=== PATIENT | female | born 1960 | race Caucasian/White ===

== ENCOUNTER → 2017-10-31 | Day surgery (SDC) | payer OTHER, MEDICARE ==
[~2017-10-31] VITALS: Ht 162.6 cm; Wt 81.6 kg
[~2017-10-31] MED LIST: FLUOXETINE HYDR20 MG PO; KETOROLAC TROME10 M1 PO; MULTIVITAMIN1 TAB PO; PROTONIX 40MG T40 MG PO; VICODIN5-300 PO; VITAB121000 PO; VITAMIN B6100 MG PO; [UNRECOGNIZED DRUG - OTHER] PO
--- NOTE | 2017-11-01 07:11 | Operative Report ---
Operative/Inv Procedure Report Surgery Date: 10/31/17 Name of Procedure: cystscopy: mid-urethral sling with mesh insertion: botox 300 units bladder injection Pre-Operative Diagnosis: severe mixed incontinence: refractory to anti-cholinergics even at higher than recommended doses. Post-Operative Diagnosis: same Estimated Blood Loss: less than 50ml Surgeon/Aircraft Ordnance Systems Mechanic: Jelnai Mayo MD Anesthesia: laryngeal mask airway, block Drains: 16fr hernandez-dc'd in rr for VT Complications: none Operative/Procedure Note Note: The patient was taken to the operating room and placed on the OR table in supine position. Timeout was performed in order to confirm the correct patient, procedure, and other pertienent operative information. After adequate anesthesia and antibiotics, the patient was then placed lithotomy stirrups, draped and prepped in the usual surgical fashion. Dr. Riggins proceeded with her surgery first. Once Dr. Riggins was finished with her surgery, the 22 gabonese cystoscope with the 30 degree angle lens was inserted into the bladder without difficulty. Uretral mucosa was noted to be coapting well. The bladder appears normal without tumor/stone. Bilateral clear efflux was also noted. The cystoscope was removed after draining the bladder. Subsequently, the Botox Injection Resectoscope with 30 angle lens was inserted without difficulty. Under direct visualization, the 18-gauge cystoscopic needle was extended. Using a spiral injection patern, avoiding the trigone and area around the ureteral orifices, a total of 300 units of Botox, in small 10unit aliquots was injected into the bladder muscle/detrusor (including the dome, posterior, right and left campbell of the bladder) forming a submucosal blister with each injection of botox. The bladder was then drained and the Botox cystoscope was removed without difficulty. A weighted speculum was placed into the vagina without difficulty. A 14 Maldivian Hernandez catheter was inserted without difficulty, draining clear urine. Once the bladder was completely drained, the hernandez was clamped. [place]-dissection, using 2% lidocaine with epinephrine, was performed along the mid line of the urethra, from the urethral orifice to the bladder neck. 15 blade knife was used to make an vertical incision along the length of the urethra. Using blunt and sharp dissection, anterior vaginal flaps were were dissected in order to expose the periurethral fascia. The medial aspect of the initial bone was palpable from both sides of the urethral dissection. Stab incisions on the lateral portion of the labia, approximately 2 cm below the insertion point of the gracilis was performed using 15 blade knife. The entire area was infiltrated with 2% lidocaine with epinephrine. The finder needle was used in order to identify the inner surface of the initial spine to find the obturator space. Using the right -handed needle passer, the puncture wound on the left side of the patient was entered, guiding the passer, with index finger in the vaginal sarina-urethral space, through the inner surface of the obturator, and into the sarina-vesicle space extending out through the left side of the anterior vaginal dissection. The mesh was then attached to the needle passer, and the needle passer was then retracted along the same line as was entered, pulling the mesh in place along with it. The oposite side of the mesh was passed into the sarina-vesical space, and out through the right stab incision using mirror image technique. The mesh was flattened, and securely placed across the mid-urethral position. Copious amount of vancomycin irrigation solution was used to irrigate the vaginal incision, as well as the lateral incisions. The Hernandez catheter was removed, followed by insertion of a 22 Maldivian cystoscope sheath with a 30 angle lens. Upon entering the bladder the bladder was noted to be free of tumor free of injury free of stone area both ureteral orifices were in their orthotopic position with clear reflux bilaterally. The cystoscope was then drained and the 14 Maldivian Hernandez catheter was then reinserted. The excess mesh material extruding from the lateral incisions was cut down below the skin, both lateral incisions were closed using Fair. The anterior vaginal incision was closed using 2-0 undyed Vicryl stitch in a alternating simple/locking stitch. Bacitracin coated vaginal packing was then placed into the vaginal vault. The Hernandez catheter was placed into a leg bag, which will be discontinued in the recovery room once the patient is awake along with the vaginal packing. All sponge needle and instrument counts were correct at the end of the case. The patient tolerated the procedure well, and was then taken to recovery room in satisfactory condition. She was discharged home with pain medication and antibiotics, and to follow up in 2 weeks' time. Discharge Disposition: PACU CC: Jelani Mayo MD
== END ==
LOC: STS 01:57
DX: N32.81 Overactive bladder (principal); N39.41 Urge incontinence; N39.46 Mixed incontinence; R10.2 Pelvic and perineal pain; K66.0 Peritoneal adhesions (postprocedural) (postinfection); K21.9 Gastro-esophageal reflux disease without esophagitis; Z87.891 Personal history of nicotine dependence
CPT/HCPCS: 81025; C1781; J0585; J2250; J2405; J3370

== ENCOUNTER 2017-11-15 12:02 | Emergency (ER) | payer OTHER ==
[~2017-11-15] VITALS: Ht 162.6 cm; Wt 81.6 kg
[2017-11-15] MEDS ORDERED: NYSTATIN100000 UNI PO (12:53)
[2017-11-15] MEDS ORDERED: ESCITALOPRAM OX10 MG PO (12:53)
[2017-11-15] MEDS ORDERED: LIDOCAINE HCL V15 ML PO (12:53)
[2017-11-15] MEDS ORDERED: NEXIUM40 M1 PO (12:53)
[2017-11-15] MEDS ORDERED: TRIAMCINOLONE AC5 GM TOP (12:53)
[2017-11-15] MEDS ORDERED: CRESTOR5 M1 PO (12:54)
--- NOTE | 2017-11-15 15:06 | CT SCAN REPORT ---
EXAMINATION: CT ABDOMEN AND PELVIS WITHOUT CONTRAST CLINICAL INFORMATION: Left flank pain. COMPARISON: 07/10/2014 TECHNIQUE: Multidetector volumetric imaging was performed from the superior aspect of the liver through the pubic symphysis. Sagittal and coronal reformatted images were obtained on the technologist's workstation. DLP: 637 mGy-cm FINDINGS: LUNG BASES: Unremarkable. No basilar consolidation or pleural effusion. LIVER, GALLBLADDER, AND BILIARY TREE: The liver has normal size, shape, and attenuation. No focal hepatic lesion. The gallbladder is normal; no radiopaque gallstones, wall thickening or pericholecystic inflammatory changes. No intrahepatic or extrahepatic bile duct dilatation. PANCREAS: Unremarkable. SPLEEN: Unremarkable. ADRENAL GLANDS: Unremarkable. KIDNEYS AND URETERS: The kidneys have normal size, shape, and attenuation. No hydroureteronephrosis, urolithiasis or perinephric stranding. BLADDER: Unremarkable. BOWEL AND PERITONEUM: Stomach is unremarkable. The small and large bowel are normal in caliber. The appendix is normal. No evidence of acute inflammation or obstruction along the gastrointestinal tract. No ascites or pneumoperitoneum. ABDOMINAL WALL: Small fat-containing umbilical hernia, 1.3 cm transverse dimension, unchanged compared to 07/10/2014. LYMPH NODES: No pathologic sized lymph nodes in the abdomen or pelvis. No inguinal lymphadenopathy. VASCULAR: Atherosclerosis of abdominal aorta without aneurysm. No retroperitoneal hematoma. PELVIC: The uterus and adnexa are unremarkable. No pelvic mass or free fluid. MUSCULOSKELETAL: The lumbar vertebra have normal height and alignment. Surgical changes from L3 laminectomy and L3-L4 spinal fusion. The posterior fusion rods and transpedicular screws are intact. The intervertebral fusion device is well-positioned within the disc space. There are solid posterolateral columns of bone graft at L3-L4. The grade 2 avascular necrosis of the right femoral head is new compared to 07/10/2014. IMPRESSION: - No evidence of urolithiasis or urinary tract obstruction. - Small, fat-containing umbilical hernia is unchanged compared to 07/10/2014. 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
--- NOTE | 2017-11-15 15:39 | ED NECK/BACK PAIN COMPLAINT ---
History of Present Illness General Chief Complaint: Abdominal Pain/Flank Pain Stated Complaint: L FLANK PAIN, HX OF KIDNEY STONES Source: patient Exam Limitations: no limitations Vital Signs & Intake/Output Vital Signs & Intake/Output Vital Signs Date Time Temp Pulse Resp B/P B/P Pulse O2 O2 Flow FiO2 Mean Ox Delivery Rate 11/15 1507 58 18 121/82 99 Room Air 11/15 1208 97.0 53 18 117/76 96 Room Air Allergies Coded Allergies: ciprofloxacin (From CIPRO) (THRUSH 11/15/17) Reconcile Medications Escitalopram Oxalate 10 MG TABLET 1 TAB PO DAILY MENTAL HEALTH (Reported) Esomeprazole (Nexium) 40 MG CAPSULE.DR 1 CAP PO DAILY GI (Reported) Lidocaine HCl (Lidocaine HCl Viscous) 2 % SOLUTION 5 ML PO TID THRUSH ( Reported) Nystatin 100,000 UNIT/ML ORAL.SUSP 5 ML PO 4 TIMES/DAY THRUSH (Reported) Rosuvastatin Calcium (Crestor) 5 MG TABLET 1 TAB PO DAILY CHOLESTEROL ( Reported) Triamcinolone Acetonide 0.1 % PASTE..G. 1 JAMIE TOP DAILY SKIN (Reported) Triage Note: PT STATES SHE IS HAVING LEFT FLANK PAIN THAT BEGAN YESTERDAY. PT STATES SHE HAS A KIDNEY STONE THAT IS MOVING. Triage Nurses Notes Reviewed? yes HPI: 56-year-old white female with previous history of back problems for which she required pain management now presents with left flank pain since last night which she describes as severe and possibly related to a previous kidney stone. Patient admits to mild nausea but denies any history of trauma, rash, abdominal pain, bowel or bladder incontinence, or radiation of her pain. Past History Travel History Traveled to [place] past 21 day No Medical History Any Pertinent Medical History? see below for history Neurological: NONE EENT: NONE Cardiovascular: hyperlipidemia Respiratory: NONE Gastrointestinal: GERD Hepatic: NONE Renal: KIDNEY STONES Musculoskeletal: chronic back pain Psychiatric: depression Endocrine: NONE Blood Disorders: NONE Cancer(s): PRE CA POLYPS DRYWALL CONTRACTOR/Reproductive: NONE Surgical History Surgical History: non-contributory Psychosocial History What is your primary language Japanese Tobacco Use: Quit >30 days ago ETOH Use: occasional use Illicit Drug Use: denies illicit drug use Family History Hx Contributory? No Review of Systems Review of Systems Constitutional: Denies: no symptoms, see HPI, chills, diaphoresis, fever, malaise, weakness, unexplained weight loss. Musculoskeletal: Reports: back pain. Skin: Reports: no symptoms. Neurological/Psychological: Reports: no symptoms. All Other Systems: Reviewed and Negative Physical Exam Physical Exam General Appearance: well developed/nourished, alert, awake Head: atraumatic, normal appearance Eyes: Bilateral: PERRL, EOMI, normal inspection. Ears, Nose, Throat, Mouth: hearing grossly normal Neck: normal inspection, supple Respiratory: normal breath sounds, chest non-tender, no respiratory distress, quiet respiration, lungs clear Cardiovascular: regular rate/rhythm Gastrointestinal: normal bowel sounds, soft, non-tender, no organomegaly Back: CVA tenderness (L), decreased range of motion, muscle spasm Extremities: non-tender, normal range of motion Neurologic/Psych: no motor/sensory deficits, awake, alert, oriented x 3, normal gait Core Measures CVA/TIA Diagnosis: No Progress Differential Diagnosis: aortic dissection, herniated disc, myofascial strain, sciatica, ureterolithiasis Plan of Care: Orders Procedure Date/time Status URINALYSIS 11/15 1209 Complete Laboratory Tests 11/15/17 1218: Urine Color YEL, Urine Clarity CLEAR, Urine pH 6.5, Ur Specific [place] 1.015, Urine Protein NEG, Urine Ketones NEG, Urine Nitrite NEG, Urine Bilirubin NEG, Urine Urobilinogen 0.2, Ur Leukocyte Esterase TRACE H, Ur Microscopic SEDIMENT EXAMINED, Urine RBC RARE, Urine WBC RARE, Ur Epithelial Cells FEW, Urine Bacteria RARE H, Urine Hemoglobin TRACE-INTACT, Urine Glucose NEG Comments: Patient was given Toradol 50 mg IV without relief of symptoms. This was followed by morphine 4 mg IV however the patient continues to report pain. Long conversation was had with the patient regarding her previous history of back pain requiring pain management and my concern regarding possible opioid tolerance. Patient will be given a prescription for Celebrex and recommended to follow-up with Orth [facility] plastic production machine setter for outpatient physical therapy and pain management. Departure Departure Time of Disposition: 1535 Disposition: HOME OR SELF CARE Condition: Stable Clinical Impression Primary Impression: Back pain Qualifiers: Back pain location: low back pain Chronicity: acute Back pain laterality: left Sciatica presence: without sciatica Qualified Code: M54.5 - Low back pain Referrals: Cee DENT,Lexi Márquez (PCP/Family) Additional Instructions: Please follow-up with your PCP for ongoing pain management as well as with the orthopedist on-call for possible physical therapy and pain management. Departure Forms: Customer Survey General Discharge Information
[2017-11-15] MEDS ORDERED: CELEBREX200 M1 PO (15:42)
[2017-11-15 16:11] VITALS: BP 133/75
== END 2017-11-15 16:13 ==
LOC: ERH 12:02
DX: M54.9 Dorsalgia, unspecified (principal); R10.9 Unspecified abdominal pain; R11.0 Nausea; Z87.891 Personal history of nicotine dependence
CPT/HCPCS: 74176; 81001; 96374; 96375; J1885